=== PATIENT | male | born 1945 | race Caucasian/White ===

== ENCOUNTER → 2021-12-30 | Outpatient (CLI) | payer OTHER, MEDICARE ==
[~2021-12-30] MED LIST: IOHEXOL 300 MG/ML 100ML VIAL. IV ONE
--- NOTE | 2021-12-30 13:56 | KCIC ---
PQRS Compliance Statement: One or more of the following individualized dose reduction techniques were utilized for this examinat ion: 1. Automated exposure control 2. Adjustment of the mA and/or kV according to patient size 3. Use of iterative reconstruction technique Exam performed: CT chest and abdomen with contrast HISTORY: Family history of aortic aneurysm. DATE OF SERVICE: 12/30/2021. COMPARISON: None available TECHNIQUE: Contiguous helical acquisitions are obtained through the chest and abdomen during intraven ous administration of 100 cc of Isovue-[id number]. Sagittal and coronal reformatted images are obtained. FINDINGS: The ascending thoracic aorta, aortic arch and descending thoracic aorta appear normal in course and c aliber. Normal three-vessel aortic arch. The abdominal aorta appears normal in caliber. Normal aortic bifurcation is seen. Normal origins of the celiac axis, superior and inferior mesenteric arteries is noted. There is no evidence of aneurysm. Structures at the thoracic inlet including both lobes of the thyroid gland appear normal. No neck, ax illary, mediastinal or hilar adenopathy is seen. Heart size is normal without pericardial effusion. T here is diffuse atheromatous coronary calcification. Lungs are expanded and clear. No focal nodules o r masses are seen. The liver and spleen are normal. Cholelithiasis. There is a 2.2 x 1.7 x 2.0 cm cystic nodule in the p ancreatic tail, the remainder pancreas appears normal. No attenuating left adrenal nodule. The right adrenal gland and both kidneys are normal in size with symmetric excretion of contrast via both kidne ys. Left parapelvic cysts. Aorta is normal in caliber with mild atheromatous calcification small and large bowel loops are nondilated and unremarkable. No retroperitoneal or mesenteric adenopathy is see n. Interrogation of bone windows is unremarkable. IMPRESSION: No evidence of thoracic aortic aneurysm seen. Cholelithiasis. Cystic nodule measuring 2.2 x 1.7 x 2.0 cm in the pancreatic tail. This could represent an epithelial cyst or cystic neoplasm. Evaluation with MRI abdomen with contrast using pancreatic protocol may be obtained to further evaluate. Electronically signed by: Kamryn Beckett MD (12/30/2021 1:53 PM) [facility]
== END ==
LOC: KCIC CT 09:24
PROVIDERS: ATTEND Family Medicine
DX: I77.811 Abdominal aortic ectasia (principal); K80.20 Calculus of gallbladder without cholecystitis without obstruction; K86.89 Other specified diseases of pancreas; I25.10 Atherosclerotic heart disease of native coronary artery without angina pectoris; Z84.89 Family history of other specified conditions; Z87.891 Personal history of nicotine dependence
CPT/HCPCS: 71260; 74160; Q9967